=== PATIENT | female | born 1970 | race Caucasian/White ===

== ENCOUNTER 2021-03-23 20:48 | Emergency (ER) | payer OTHER ==
[2021-03-23] MEDS ORDERED: Sodium Chloride 0.9% 1,000 ML IV STA (21:40)
--- NOTE | 2021-03-23 21:40 | EDM.PDOC ---
ED HPI GENERAL MEDICAL PROBLEM - General Chief Complaint: Syncope Stated Complaint: [facility] Time Seen by Provider: 03/23/21 20:55 Source of Information: Reports: Patient, RN Notes Reviewed History Limitations: Reports: No Limitations - History of Present Illness INITIAL COMMENTS - FREE TEXT/NARRATIVE: Patient is a 50-year-old female presenting to the emergency department for evaluation with regards to a syncopal episode. Patient was waiting to get her food at a restaurant when she states that she became dizzy. She did have a subsequent syncopal episode. Reports that she fell to the ground but did not hit her head. At this time, she feels much better but does feel slightly dizzy. She is currently eating her food and feels that once she has eaten she will feel better. She has not eaten since 1130 this morning and was at work all day. She received 750 mils of normal saline in route by ambulance. 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 She does feel that she was drinking enough fluid throughout the day. Denies any chest pain or shortness of breath. She has no headache or vision changes. 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 Headache Pain Score (Numeric/FACES): 6 - Related Data Allergies Allergy/AdvReac Type Severity Reaction Status Date / Time No Known Allergies Allergy Verified 03/23/21 21:07 Home Meds: Home Meds Acetaminophen [Non-Aspirin] 325 mg PO 03/23/21 [History] Escitalopram Oxalate [Lexapro] 20 mg PO 03/23/21 [History] Hydrocodone/Acetaminophen [HYDROcodone-Acetaminophen 5-325 MG] 03/23/21 [History] Methylphenidate [Ritalin] 5 mg PO DAILY 03/23/21 [History] Mirtazapine [Remeron] 15 mg PO 03/23/21 [History] Naproxen Sodium [Aleve] 220 mg PO TID PRN 03/23/21 [History] QUEtiapine [SEROquel] 03/23/21 [History] Past Medical History - Past Health History Medical/Surgical History: Denies Medical/Surgical History Neurological History: Reports: Migraines Social & Family History - Family History Family Medical History: No Pertinent Family History - Recreational Drug Use Recreational Drug Use: No ED ROS GENERAL - Review of Systems Review Of Systems: See Below Constitutional: Reports: No Symptoms. Denies: Fever, Chills, Weakness, Fatigue HEENT: Denies: Vertigo Respiratory: Reports: No Symptoms Cardiovascular: Reports: Syncope. Denies: Chest Pain, Dyspnea on Exertion, Palpitations GI/Abdominal: Reports: No Symptoms : Reports: No Symptoms Musculoskeletal: Reports: No Symptoms Skin: Reports: No Symptoms Neurological: Reports: No Symptoms Psychiatric: Reports: No Symptoms Hematologic/Lymphatic: Reports: No Symptoms Immunologic: Reports: No Symptoms - Physical Exam Exam: See Below General Appearance: Alert, WD/WN, No Apparent Distress Eye Exam: Bilateral Eye: Normal Inspection Head Exam: Atraumatic, Normocephalic Neck: Normal Inspection, Supple, Non-Tender, Full Range of Motion Respiratory/Chest: No Respiratory Distress, Lungs Clear, Normal Breath Sounds, No Accessory Muscle Use, Chest Non-Tender Cardiovascular: Normal Peripheral Pulses, Regular Rate, Rhythm, No Edema, No Gallop, No JVD, No Murmur, No Rub GI/Abdominal: Normal Bowel Sounds, Soft, Non-Tender, No Organomegaly, No Distention, No Abnormal Bruit, No Mass Neuro Exam (Abbreviated): Alert, Oriented, CN II-XII Intact, Normal Cognition, Normal Gait, Normal Reflexes, No Motor/Sensory Deficits Extremities: Normal Inspection, Normal Range of Motion, Non-Tender, No Pedal Edema, Normal Capillary Refill Psychiatric: Normal Affect, Normal Mood Skin Exam: Warm, Dry, Intact, Normal Color, No Rash #1 Interpretation EKG Date: 03/23/21 Time: 21:17 Rhythm: NSR Rate (Beats/Min): 68 [place]: Normal P-Wave: Present QRS: Normal ST-T: Normal QT: Prolonged Course - Vital Signs Last Recorded V/S: Last Vital Signs Temp 98.2 F 03/23/21 21:01 Pulse 76 03/23/21 23:25 Resp 20 03/23/21 23:25 BP 119/63 03/23/21 23:25 Pulse Ox 99 03/23/21 23:25 Orthostatic Blood Pressure [ 124/77 Standing] Orthostatic Blood Pressure [ 124/74 Supine] - Orders/Labs/Meds Labs: Laboratory Tests 03/23/21 03/23/21 Range/Units 21:22 21:22 WBC 5.57 (3.98-10.04) K/mm3 RBC 4.52 (3.98-5.22) M/mm3 Hgb 12.9 (11.2-15.7) gm/dl Hct 40.1 (34.1-44.9) % MCV 88.7 (79.4-94.8) fl MCH 28.5 (25.6-32.2) pg MCHC 32.2 (32.2-35.5) g/dl RDW Std Deviation 43.8 (36.4-46.3) fL Plt Count 216 (182-369) K/mm3 MPV 9.5 (9.4-12.3) fl Neut % (Auto) 59.3 (34.0-71.1) % Lymph % (Auto) 29.3 (19.3-51.7) % [place] % (Auto) 8.1 (4.7-12.5) % Eos % (Auto) 2.7 (0.7-5.8) Baso % (Auto) 0.2 (0.1-1.2) % Neut # (Auto) 3.31 (1.56-6.13) K/mm3 Lymph # (Auto) 1.63 (1.18-3.74) K/mm3 [place] # (Auto) 0.45 H (0.24-0.36) K/mm3 Eos # (Auto) 0.15 (0.04-0.36) K/mm3 Baso # (Auto) 0.01 (0.01-0.08) K/mm3 Sodium 142 (136-145) mEq/L Potassium 3.7 (3.5-5.1) mEq/L Chloride 105 (98-107) mEq/L Carbon Dioxide 28 (21-32) mEq/L Anion Gap 12.7 (5-15) BUN 17 (7-18) mg/dL Creatinine 1.1 H (0.55-1.02) mg/dL Est Cr Clr Drug Dosing 48.39 mL/min Estimated GFR (MDRD) 53 (>60) mL/min BUN/Creatinine Ratio 15.5 (14-18) Glucose 101 H (70-99) mg/dL Calcium 9.0 (8.5-10.1) mg/dL Magnesium 2.0 (1.8-2.4) mg/dL Total Bilirubin 0.3 (0.2-1.0) mg/dL AST 16 (15-37) U/L ALT 22 (14-59) U/L Alkaline Phosphatase 113 (46-116) U/L Total Protein 7.4 (6.4-8.2) g/dl Albumin 3.9 (3.4-5.0) g/dl Globulin 3.5 gm/dL Albumin/Globulin Ratio 1.1 (1-2) Meds: Medications Discontinued Medications Generic Name Dose Route Start Last Admin Trade Name Heather PRN Reason Stop Dose Admin Sodium Chloride 1,000 mls @ 999 mls/hr 03/23/21 21:40 03/23/21 21:57 Normal Saline IV 03/23/21 22:40 999 mls/hr NOW STA Administration - Re-Assessments/Exams Free Text/Narrative Re-Assessment/Exam: Patient is a 50-year-old female presenting to the emergency department for evaluation after experiencing a syncopal episode. She is feeling much better now and is eating her dinner. Exam is grossly unremarkable. She has no significant medical history. I have ordered blood work and EKG. I will give her 1 L bolus of normal saline while awaiting test results. 03/23/21 22:13 Hematology is grossly unremarkable. Patient is feeling well. We will discharge her home. Discharge instructions as documented. Departure - Departure Time of Disposition: 22:13 Disposition: Home, Self-Care 01 Condition: Good Clinical Impression: Syncope Qualifiers: Syncope type: unspecified Qualified Code(s): R55 - Syncope and collapse - Discharge Information *PRESCRIPTION DRUG MONITORING PROGRAM REVIEWED*: No *COPY OF PRESCRIPTION DRUG MONITORING REPORT IN PATIENT JADEN: No Instructions: Syncope, [id number] Referrals: Evans Schaefer MD [Primary Care Provider] - Forms: ED Department Discharge Additional Instructions: You were seen in the emergency department today for evaluation after exper iencing a syncopal episode. Work-up included blood work and EKG. Results of your work-up were found to be normal. Recommend that she go home and rest. Ensure that you are taking an adequate amount of fluid and eating regularly. If you should experience any new or worsening symptoms of concern, please do not hesitate to return to the emergency department for reevaluation. Sepsis Event Note (ED) - Evaluation Sepsis Screening Result: No Definite Risk
== END 2021-03-23 23:25 | disposition home or self-care (01) ==
LOC: JD.ED 20:48 → SUPCPDRO 20:48 → JD.ED 23:25
DX: R55 Syncope and collapse (principal); R42 Dizziness and giddiness
CPT/HCPCS: 36415; 80053; 83735; 85025; 93005; 99285; J7030; 93010; 99283

== ENCOUNTER 2025-05-25 14:13 | Emergency (ER) | payer SELFPAY ==
[2025-05-25] MEDS: Albuterol 0.083% 2.5 MG/3 ML Neb Soln NEB ONE (14:58)
[2025-05-25 14:59] LABS: BASOPHILS ABSOLUTE AUTO 0.1 K/mm3 (0.0-0.2); BASOPHILS PERCENT AUTO 1.3 % (0.0-1.0); EOSINOPHILS ABSOLUTE AUTO 2.6 K/mm3 (0.0-0.4); EOSINOPHILS PERCENT AUTO 38.1 % (0.0-6.0); IMMATURE GRAN ABSOLUTE AUTO 0.03 K/mm3 (0.00-0.05); IMMATURE GRAN PERCENT AUTO 0.4 % (0.0-0.4); LYMPHOCYTES ABSOLUTE AUTO 1.1 K/mm3 (1.0-4.8); LYMPHOCYTES PERCENT AUTO 15.8 % (24.0-44.0); MEAN PLATELET VOLUME 8.7 fl (9.4-12.3); MONOCYTES ABSOLUTE AUTO 0.8 K/mm3 (0.0-0.8); MONOCYTES PERCENT AUTO 11.8 % (0.0-8.0); NEUTROPHILS ABSOLUTE AUTO 2.2 K/mm3 (1.8-7.7); NEUTROPHILS PERCENT AUTO 32.6 % (41.0-71.0); NRBC ABSOLUTE 0.00 (0.00-0.02); NRBC PERCENT 0.0 % (0.0-0.2); PLATELET COUNT,PLT 263 K/mm3 (150-400); RED BLOOD CELL COUNT 5.01 M/mm3 (4.10-5.30); WHITE BLOOD CELL COUNT,WBC 6.88 K/mm3 (3.9-11.3)
[2025-05-25 15:15] LABS: A/G RATIO 0.6 (1-2); ALANINE AMINOTRANSFERASE,ALT 40.0 U/L (14-59); BILIRUBIN TOTAL 0.6 mg/dL (0.2-1.0); BLOOD UREA NITROGEN,BUN 7.0 mg/dL (7-18); CARBON DIOXIDE,CO2 28.0 mEq/L (21-32); CHLORIDE,CL 105.0 mEq/L (98-107); CREATININE 0.9 mg/dL (0.55-1.02); EST CRCL DRUG DOSING (CG) 56.52 mL/min; ESTIMATED GFR 76.0 mL/min (>60); GLUCOSE RANDOM 81.0 mg/dL (70-99); PROTEIN TOTAL,TP 8.2 g/dl (6.4-8.2); SODIUM,NA 138.0 mEq/L (136-145); TROPONIN I HIGH SENSITIVITY 5.0 pg/mL (<=51)
[2025-05-25 15:18] LABS: ASPARTATE AMNIOTRANSFERASE,AST 46.0 U/L (15-37); POTASSIUM,K 4.9 mEq/L (3.5-5.1)
[2025-05-25] MEDS: methylPREDNISolone Sodium Succinate 125 MG/2 ML SDV IVPUSH ONE (15:30)
[2025-05-25] MEDS: Sodium Chloride 0.9% 10 ML Syringe FLUSH PRN (15:31)
[2025-05-25 16:54] LABS: RETICULOCYTE COUNT PERCENT 1.70 % (0.50-2.00)
[2025-05-25 17:56] LABS: CORONAVIRUS COVID-19 NAA NEGATIVE (NEGATIVE); INFLUENZA A NAA NEGATIVE (NEGATIVE); RESPIRATORY SYNCYTIAL VIR NAA NEGATIVE (NEGATIVE)
[2025-05-26 10:43] LABS: HYPOCHRO 1+ /hpf; MICRO 1+ /hpf; NEUTROPHILS% 29 % (41-71)
== END 2025-05-25 18:28 | disposition home or self-care (01) ==
LOC: JD.ED 14:13
DX: J06.9 Acute upper respiratory infection, unspecified (principal); Z79.899 Other long term (current) drug therapy
CPT/HCPCS: 36415; 71045; 80053; 83880; 84484; 85025; 85045; 87637; 93005; 94640; 96374; 99285; J2919; J7613; J7620; A9270-GY